=== PATIENT | female | born 1950 | race Caucasian/White ===

== ENCOUNTER 2017-06-17 22:31 | Inpatient (IN) | payer BC, MEDICARE ==
[~2017-06-17] VITALS: Ht 167.6 cm; Wt 74.8 kg
--- NOTE | 2017-06-17 22:45 | NUR ---
Seen patient in the bed moderate sinclair's position, AOX3 ambulatory, came to ED for vomiting, abdomen non distended, with (+) bowel sounds. Vomiting started around 1 pm, after lunch: pt had chicken salad around 11am. BM last was yesterday 06/16/17. Pt c/o back pain 04/03, usually take Ibuprofen w/ relief.
--- NOTE | 2017-06-18 00:22 | NUR ---
Seen and assessed by .
[2017-06-18] MEDS ORDERED: IV NORMAL SALINE 1000 ML BAG IV ONE (00:30)
[2017-06-18 00:49] LABS: BASOPHILS % (AUTO) 0.3 % (0.0-2.0); EOSINOPHILS # (AUTO) 0.1 K/uL (0.0-0.7); EOSINOPHILS % (AUTO) 1.1 % (0.0-7.0); HEMOGLOBIN 8.5 G/DL (12.0-16.0); LYMPHOCYTES # (AUTO) 0.2 K/UL (0.8-4.8); LYMPHOCYTES % (AUTO) 4.1 % (20.5-51.5); MEAN CORPUSCULAR HEMOGLOBIN 30.1 UUG (27.0-31.0); MEAN CORPUSCULAR HGB CONC 33 g/dL (32.0-37.0); MEAN CORPUSCULAR VOLUME 91.8 FL (81.0-99.0); MONOCYTES # (AUTO) 0.4 K/UL (0.1-1.30); NEUTROPHILS % (AUTO) 86.5 % (38.5-71.5); PLATELET COUNT (AUTO) 98 K/UL (150-450); RED BLOOD CELL COUNT(AUTO) 2.83 MIL/UL (4.2-5.4); WHITE BLOOD COUNT (AUTO) 4.7 K/UL (4.0-11.2)
[2017-06-18] MEDS ORDERED: POTA-88 PO (00:54)
[2017-06-18] MEDS ORDERED: FURO-152 PO (00:54)
[2017-06-18] MEDS ORDERED: ARIP2TAB3 PO (00:54)
[2017-06-18] MEDS ORDERED: NIAC1000 PO (00:54)
[2017-06-18] MEDS ORDERED: GOLI50PE SQ (00:54)
[2017-06-18] MEDS ORDERED: LAMO200T2 PO (00:54)
[2017-06-18 01:10] LABS: LIPASE 277 U/L (73-393)
[2017-06-18 01:11] LABS: CREATININE 1.2 mg/dL (0.6-1.3)
[2017-06-18 01:13] LABS: POTASSIUM 2.7 mmol/L (3.5-5.1)
[2017-06-18 01:16] LABS: BILIRUBIN,DIRECT 1.1 mg/dL (0.0-0.2); BILIRUBIN,TOTAL 1.5 mg/dL (0.2-1.0); TOTAL PROTEIN, SERUM 6.8 g/dL (6.4-8.2)
[2017-06-18 01:18] LABS: EOSINOPHILS % (MANUAL) 2 % (0-8); LYMPHOCYTES % (MANUAL) 4 % (20-40); MONOCYTES % (MANUAL) 2 % (2-10); NEUTROPHILS % (MANUAL) 92 % (42-75)
[2017-06-18] MEDS ORDERED: ONDANSETRON IV *ER 4 MG/2 ML VIAL IV ONE (01:45)
[2017-06-18] MEDS ORDERED: POTASSIUM CHLORIDE 50 ML IV SCH (01:45)
[2017-06-18] MEDS ORDERED: ONDANSETRON 4 MG/2 ML VIAL ONE (01:50)
[2017-06-18] MEDS ORDERED: POTASSIUM CHLORIDE 50 ML ONE (01:51)
--- NOTE | 2017-06-18 02:00 | NUR ---
Pt started w/ IV NS bolus 2.3L , still on going, administered Potassium 10meq/IVPB at 50mls/hr and Zofran 4mg/IVP. Pt also urinated twice total since she came in. Reassessed back pain 01/04 now.
--- NOTE | 2017-06-18 02:50 | NUR ---
Pt will be admitted to Tele floor under Tita Shelton
--- NOTE | 2017-06-18 03:30 | NUR ---
Report given to Paula,Charge Nurse. Pt still completing NS fluids (total of 2,300mls).
--- NOTE | 2017-06-18 03:45 | NUR ---
Received admission report from Paula, Charge Nurse
--- NOTE | 2017-06-18 03:55 | NUR ---
Transferred pt to Telemetry floor via stretcher w/ FRANKI Ceja. Completed Potassium Chloride IVPB.
[2017-06-18 04:00] VITALS: BP 120/66
--- NOTE | 2017-06-18 04:05 | NUR ---
Admitted patient from ER via [facility]. Routine admission care done. Plan of care initiated.
[2017-06-18] MEDS ORDERED: ACETAMINOPHEN 325 MG TABLET PO PRN (05:15)
[2017-06-18] MEDS ORDERED: LORAZEPAM 0.5 MG TABLET PO PRN (05:15)
[2017-06-18] MEDS ORDERED: NITROGLYCERIN 0.4 MG/TAB BOTTLE SL PRN (05:15)
[2017-06-18] MEDS ORDERED: DOCUSATE SODIUM 100 MG CAPSULE PO PRN (05:15)
[2017-06-18] MEDS ORDERED: ONDANSETRON 4 MG/2 ML VIAL IV PRN (05:15)
[2017-06-18] MEDS ORDERED: MORPHINE SULFATE 2 MG/1 ML DISP.SYRIN IV PRN ×2 (05:15)
[2017-06-18 05:35] LABS: IRON, SERUM 31 ug/dL (50-175)
--- NOTE | 2017-06-18 05:37 | NUR ---
Ambulated to the bathroom with steady gait. Voided well, no problem.
[2017-06-18] MEDS ORDERED: MORPHINE SULFATE 4 MG/1 ML DISP.SYRIN IV PRN ×2 (07:15)
[2017-06-18] MEDS ORDERED: CARVEDILOL 25 MG TABLET PO SCH (08:00)
--- NOTE | 2017-06-18 08:00 | NUR ---
ALERT AND ORIENTED X3 DENIES CP OR SOB, NO NAUSEA AND VOMITING, SR ON MONITOR
[2017-06-18] MEDS: LAMOTRIGINE 200 MG TABLET PO SCH (08:32)
[2017-06-18] MEDS ORDERED: CARVEDILOL 3.125 MG TABLET PO SCH (09:00)
[2017-06-18] MEDS ORDERED: ASPIRIN 81 MG TAB.CHEW PO SCH (09:00)
[2017-06-18] MEDS ORDERED: NIACIN 1500 MG PO SCH (09:00)
[2017-06-18 10:11] LABS: BASOPHILS % (AUTO) 0.2 % (0.0-2.0); HEMATOCRIT 24.8 % (37-47); HEMOGLOBIN 8.2 G/DL (12.0-16.0); LYMPHOCYTES # (AUTO) 0.3 K/UL (0.8-4.8); LYMPHOCYTES % (AUTO) 7.7 % (20.5-51.5); MEAN CORPUSCULAR HEMOGLOBIN 30.5 UUG (27.0-31.0); MEAN CORPUSCULAR HGB CONC 33 g/dL (32.0-37.0); MEAN CORPUSCULAR VOLUME 92.2 FL (81.0-99.0); MONOCYTES # (AUTO) 0.4 K/UL (0.1-1.30); MONOCYTES % (AUTO) 7.8 % (0.0-11.0); NEUTROPHILS # (AUTO) 3.8 K/UL (1.8-8.9); NEUTROPHILS % (AUTO) 83.3 % (38.5-71.5); PLATELET COUNT (AUTO) 85 K/UL (150-450); RED BLOOD CELL COUNT(AUTO) 2.69 MIL/UL (4.2-5.4); WHITE BLOOD COUNT (AUTO) 4.5 K/UL (4.0-11.2)
[2017-06-18 10:29] LABS: BILIRUBIN,TOTAL 1.5 mg/dL (0.2-1.0); CREATININE 1.2 mg/dL (0.6-1.3); MAGNESIUM 1.3 mg/dL (1.8-2.4); PHOSPHOROUS 2.9 mg/dL (2.5-4.9); TOTAL PROTEIN, SERUM 5.6 g/dL (6.4-8.2)
[2017-06-18 10:31] LABS: EOSINOPHILS % (MANUAL) 1 % (0-8); LYMPHOCYTES % (MANUAL) 11 % (20-40); MONOCYTES % (MANUAL) 5 % (2-10); NEUTROPHILS % (MANUAL) 83 % (42-75)
[2017-06-18 10:39] LABS: POTASSIUM 2.7 mmol/L (3.5-5.1)
[2017-06-18 10:54] LABS: THYROID STIMULATING HORMONE 0.49 mIU/mL (0.358-3.740)
[2017-06-18 11:32] VITALS: BP 98/49
[2017-06-18] MEDS ORDERED: POTASSIUM CHLORIDE 20 MEQ TAB.PRT.SR PO ONE (12:15)
[2017-06-18] MEDS: MAGNESIUM SULFATE/D5W 100 ML IV SCH ×2 (12:28→13:54)
[2017-06-18] MEDS ORDERED: METRONIDAZOLE 500 MG/NS 100ML 500 MG in PREMIXED 1 EACH IV SCH (12:30)
[2017-06-18] MEDS: FERROUS SULFATE 325 MG TABEC PO SCH ×2 (12:30→21:57)
[2017-06-18] MEDS: POTASSIUM CHLORIDE 20 MEQ in IV NS 1000 ML 1,000 ML IV PRN (13:54)
[2017-06-18 14:57] LABS: *BLOOD, URINE NEGATIVE (NEGATIVE); *CLARITY,URINE CLEAR (CLEAR); *COLOR,URINE YELLOW (YELLOW); *KETONES,URINE NEGATIVE (NEGATIVE); *PROTEIN,URINE NEGATIVE (NEGATIVE); LEUKOCYTE ESTERASE ,URINE TRACE (NEGATIVE); NITRITE, URINE NEGATIVE (NEGATIVE); UGLUCOSE NEGATIVE (NEGATIVE)
[2017-06-18 15:03] LABS: *BILIRUBIN,URIN 1+ (NEGATIVE)
[2017-06-18 15:10] LABS: BACTERIA,URINE FEW /HPF (NONE SEEN); RBC,URINE 0-3 /HPF (0-3); SQUAMOUS EPITHELIAL CELL,UR FEW /HPF (NONE SEEN)
[2017-06-18] MEDS: LEVOFLOXACIN 500 MG/D5W 500 MG in PREMIXED 1 EACH IV SCH (15:14)
[2017-06-18 15:26] VITALS: BP 103/57
[2017-06-18 15:28] LABS: *AMPHETAMINE, URINE POSITIVE (NEGATIVE); *BARBITURATE, URINE NEGATIVE (NEGATIVE); *CANNABINOID, URINE NEGATIVE (NEGATIVE); *COCCAINE, URINE NEGATIVE (NEGATIVE); *OPIATE, URINE NEGATIVE (NEGATIVE); *PHENCYCLIDINE SCREEN,URINE NEGATIVE (NEGATIVE)
[2017-06-18] MEDS: METRONIDAZOLE 500 MG/NS 100ML 500 MG in PREMIXED 1 EACH IV SCH ×2 (15:42→21:58)
[2017-06-18] MEDS: ARIPIPRAZOLE 2 MG TABLET PO SCH (15:43)
[2017-06-18 18:06] LABS: HEMATOCRIT 25.4 % (37-47); HEMOGLOBIN 8.2 G/DL (12.0-16.0)
--- NOTE | 2017-06-18 19:40 | NUR ---
PT RECEIVED IN BED, ASLEEP. A/OX4. ABLE TO MAKE NEEDS KNOWN. V/S STABLE. NO ACUTE DISTRESS NOTED. NO COMPLAINTS OF PAIN. IVF INFUSING. SAFETY MEASURES IMPLEMENTED. CALL LIGHT WITHIN REACH. WILL CONT TO MONITOR.
[2017-06-18 20:02] VITALS: BP 108/56
[2017-06-18] MEDS ORDERED: SIMVASTATIN 20 MG TABLET PO SCH (21:00)
[2017-06-18] MEDS ORDERED: SIMVASTATIN 10 MG TABLET PO SCH (21:00)
[2017-06-19] MEDS: POTASSIUM CHLORIDE 20 MEQ in IV NS 1000 ML 1,000 ML IV PRN (03:30)
[2017-06-19 05:00] VITALS: BP 111/58
[2017-06-19 06:40] LABS: BASOPHILS % (AUTO) 0.4 % (0.0-2.0); EOSINOPHILS # (AUTO) 0.1 K/uL (0.0-0.7); EOSINOPHILS % (AUTO) 2.5 % (0.0-7.0); HEMOGLOBIN 8.1 G/DL (12.0-16.0); LYMPHOCYTES % (AUTO) 34.6 % (20.5-51.5); MEAN CORPUSCULAR HEMOGLOBIN 29.8 UUG (27.0-31.0); MEAN CORPUSCULAR HGB CONC 32 g/dL (32.0-37.0); MEAN CORPUSCULAR VOLUME 92.3 FL (81.0-99.0); MONOCYTES # (AUTO) 0.4 K/UL (0.1-1.30); MONOCYTES % (AUTO) 13.8 % (0.0-11.0); NEUTROPHILS # (AUTO) 1.4 K/UL (1.8-8.9); NEUTROPHILS % (AUTO) 48.7 % (38.5-71.5); PLATELET COUNT (AUTO) 70 K/UL (150-450); RED BLOOD CELL COUNT(AUTO) 2.71 MIL/UL (4.2-5.4); WHITE BLOOD COUNT (AUTO) 2.9 K/UL (4.0-11.2)
--- NOTE | 2017-06-19 06:43 | NUR ---
END OF SHIFT NOTES. PT IN STABLE CONDITION. SLEPT WELL THROUGHOUT SHIFT. IVF INFUSING. SAFETY MAINTAINED.CALL LIGHT WITHIN REACH.
[2017-06-19] MEDS: METRONIDAZOLE 500 MG/NS 100ML 500 MG in PREMIXED 1 EACH IV SCH ×2 (06:49→15:15)
[2017-06-19 06:51] LABS: ALANINE AMINOTRANSFERASE 77 U/L (14-59); ALKALINE PHOSPHATASE 270 U/L (50-136); AMYLASE 37 U/L (25-115); ASPARTATE AMINOTRANSFERASE 225 U/L (15-37); BILIRUBIN,TOTAL 1.3 mg/dL (0.2-1.0); CARBON DIOXIDE 28 mmol/L (21-32); CHLORIDE 105 mmol/L (98-107); CHOLESTEROL 70 mg/dL (<200); GLUCOSE 83 mg/dL (74-106); MAGNESIUM 1.8 mg/dL (1.8-2.4); PHOSPHOROUS 2.2 mg/dL (2.5-4.9); POTASSIUM 3.5 mmol/L (3.5-5.1); TOTAL PROTEIN, SERUM 5.7 g/dL (6.4-8.2); TRIGLYCERIDES 46 MG/DL (30-150); UREA NITROGEN, BLOOD 14 mg/dL (7-18)
[2017-06-19 07:03] LABS: HDL CHOLESTEROL < 10 mg/dL (40-60)
[2017-06-19 07:15] LABS: LIPASE 144 U/L (73-393)
[2017-06-19 07:49] LABS: EOSINOPHILS % (MANUAL) 1 % (0-8); LYMPHOCYTES % (MANUAL) 30 % (20-40); MONOCYTES % (MANUAL) 9 % (2-10); NEUTROPHILS % (MANUAL) 60 % (42-75)
--- NOTE | 2017-06-19 08:00 | NUR ---
IN BED RESTING NO NAUSEA AND VOMITING, DENIES PAIN
[2017-06-19] MEDS: FERROUS SULFATE 325 MG TABEC PO SCH (08:17)
[2017-06-19] MEDS: ARIPIPRAZOLE 2 MG TABLET PO SCH (08:17)
[2017-06-19] MEDS: LAMOTRIGINE 200 MG TABLET PO SCH (08:17)
[2017-06-19] MEDS ORDERED: POTASSIUM PHOSPHATE MM 7.5 MMOL in IV DEXTROSE 5% 100 ML IV ONE (09:45)
--- NOTE | 2017-06-19 12:00 | NUR ---
SEEN BY [employer], NOTED LABS WITH ORDERS
[2017-06-19 12:20] VITALS: BP 102/61
[2017-06-19] MEDS: LEVOFLOXACIN 500 MG/D5W 500 MG in PREMIXED 1 EACH IV SCH (13:16)
[2017-06-19 15:09] LABS: *OCCULT BLOOD STOOL POSITIVE (NEGATIVE)
[2017-06-19 15:47] VITALS: BP 114/56
--- NOTE | 2017-06-19 16:53 | NUR ---
CONTINUE WITH IVF AND IV ANTIBIOTICS ORDERED, AWAITING SURGICAL CONSULT
[2017-06-19 18:33] LABS: HEMATOCRIT 26.3 % (37-47); HEMOGLOBIN 8.4 G/DL (12.0-16.0)
--- NOTE | 2017-06-19 19:00 | NUR ---
PATIENT IN BED ALERT ORIENTED, NO SOB NO CHEST PAIN, NO COMPLAIN OF PAIN, CALL LIGHT WITHIN REACH.
[2017-06-19 20:26] VITALS: BP 121/64
[2017-06-19] MEDS ORDERED: LEVO500T2 PO (21:24)
[2017-06-19] MEDS ORDERED: METR500T PO (21:24)
--- NOTE | 2017-06-19 21:38 | NUR ---
PATIENT LEFT REFUSED TO WAIT FOR HER PAPERWORKS AND PRESCRIPTIONS, DR. CERVANTES WAS NOTIFIED.
== END 2017-06-19 21:36 | disposition home or self-care (01) | DRG 391 ==
LOC: ER 22:32 → TELE 06-18 03:33 → MED 06-18 15:45
PROVIDERS: ADMIT Internal Medicine; ATTEND Nurse Practitioner Acute Care
DX: A08.4 Viral intestinal infection, unspecified (principal); E43 Unspecified severe protein-calorie malnutrition; N17.0 Acute kidney failure with tubular necrosis; D68.9 Coagulation defect, unspecified; N39.0 Urinary tract infection, site not specified; D61.818 Other pancytopenia; K81.0 Acute cholecystitis; R18.8 Other ascites; M06.9 Rheumatoid arthritis, unspecified; E86.0 Dehydration; Z96.652 Presence of left artificial knee joint; Z96.641 Presence of right artificial hip joint; K71.7 Toxic liver disease with fibrosis and cirrhosis of liver; T45.1X5A Adverse effect of antineoplastic and immunosuppressive drugs, initial encounter; Y92.009 Unspecified place in unspecified non-institutional (private) residence as the place of occurrence of the external cause; E78.5 Hyperlipidemia, unspecified; I10 Essential (primary) hypertension; Z82.0 Family history of epilepsy and other diseases of the nervous system; Z79.899 Other long term (current) drug therapy; I51.4 Myocarditis, unspecified; E83.42 Hypomagnesemia; E83.39 Other disorders of phosphorus metabolism; E83.51 Hypocalcemia; E87.6 Hypokalemia; R73.9 Hyperglycemia, unspecified; F32.9 Major depressive disorder, single episode, unspecified; I27.2 Other secondary pulmonary hypertension; D50.9 Iron deficiency anemia, unspecified; M46.00 Spinal enthesopathy, site unspecified
CPT/HCPCS: 36415; 70030-TC; 71010; 80307; 83550; 83605; 83690; 83735; 84100; 84443; 85018; 85025; 85610; 85730; 87040; 87086; 93005; 93307; 97161; A4663; J1956; J2405; J3475; J3480; J3490; J7030; J7050; J7060